=== PATIENT | female | born 1985 | race Caucasian/White ===

== ENCOUNTER 2021-12-28 05:19 | Emergency (ER) | payer MEDICAID ==
[~2021-12-28] VITALS: Ht 177.8 cm; Wt 83.9 kg
[2021-12-28 05:29] VITALS: BP_SYST 137
--- NOTE | 2021-12-28 05:29 | NUR ---
Patient to ER bed 6 to gown for evaluation. Side rails up. Report given to Morena JAVIER(natnaael).
--- NOTE | 2021-12-28 05:41 | NUR ---
INITIAL ASSESSMENT DONE, PATIENT ALERT ORIENTED X4 ON R.A NO DISTRESS, CONNECTED TO BEDSIDE MONITOR, VS TAKEN AND RECORDED.
--- NOTE | 2021-12-28 06:09 | NUR ---
ER at bedside examining patient.
[2021-12-28] MEDS ORDERED: DIPHENHYDRAMINE INJ 50 MG/ML VIAL ONE (06:27)
[2021-12-28] MEDS ORDERED: DIPHENHYDRAMINE INJ 50 MG/ML VIAL IM ONE (06:30)
[2021-12-28] MEDS ORDERED: predniSONE 20 MG TABLET PO ONE (06:30)
--- NOTE | 2021-12-28 06:33 | NUR ---
O630 MEDICATED WITH TAB PREDNISONE 60MG ORALLY AND BENADRYL 50 MG IM AT RT [facility].
[2021-12-28] MEDS ORDERED: HYDR50CA PO (07:15)
[2021-12-28] MEDS ORDERED: DOXY100C PO (07:15)
[2021-12-28] MEDS ORDERED: PRED50TA PO (07:15)
[2021-12-28 07:25] VITALS: BP_SYST 138
--- NOTE | 2021-12-28 07:25 | NUR ---
Patient given written and verbal discharge instructions and verbalizes understanding. ER MD discussed with patient the results and treatment provided. Patient in stable condition. ID arm band removed. Rx of Vibramycin, Vistaril, Prednisone given. Patient educated on pain management and to follow up with PMD. Pain Scale 0/10. Opportunity for questions provided and answered. Medication side effect fact sheet provided.
== END 2021-12-28 07:25 | disposition home or self-care (01) ==
LOC: SED 05:19
DX: L50.9 Urticaria, unspecified (principal)
CPT/HCPCS: 96372; 99283; J1200; J7512